=== PATIENT | female | born 1945 | race Caucasian/White ===

== ENCOUNTER 2019-11-26 17:53 | Emergency (ER) | payer SELFPAY ==
[~2019-11-26] VITALS: Ht 160 cm; Wt 53.9 kg
--- NOTE | 2019-11-26 18:40 | NUR ---
GETTER FILLER: PT TO ROOM FROM BENNIE RIVERA
--- NOTE | 2019-11-26 18:58 | NUR ---
Pt alert and sitting up on gurney. Pt reports vomiting and lower abd pain since lunch. Pt reports small bowel obstruction x9 months ago, where 2 inches of small bowel were taken out. Pt reports regular BM's. No fevers at home. BS present, pt tender to bilateral lower quadrants. Pt in gown. Call light at bedside. MD at bedside.
[2019-11-26] MEDS ORDERED: AMLO5TAB10 PO (19:03)
[2019-11-26] MEDS ORDERED: CALC-545 PO (19:03)
[2019-11-26] MEDS ORDERED: CHOL200059 PO (19:03)
[2019-11-26] MEDS ORDERED: POTA99TA24 PO (19:03)
[2019-11-26] MEDS ORDERED: LISI-167 PO (19:03)
[2019-11-26 19:19] LABS: BASOPHILS # (AUTO) 0.02 x10^3/uL (0-0.1); BASOPHILS % (AUTO) 0 % (0-1); EOSINOPHILS # (AUTO) 0.01 x10^3/uL (0-0.4); EOSINOPHILS % (AUTO) 0 % (1-7); LYMPHOCYTES # (AUTO) 0.57 x10^3/uL (1-3.4); LYMPHOCYTES % (AUTO) 5 % (22-44); MD NO; MEAN CORPUSCULAR HEMOGLOBIN 31.2 pg (27.0-34.8); MEAN CORPUSCULAR HGB CONC 33.6 g/dL (32.4-35.8); MEAN CORPUSCULAR VOLUME 92.9 fL (80-100); MEAN PLATELET VOLUME 8.4 fL (7.4-10.4); MONOCYTES % (AUTO) 2 % (2-9); NEUTROPHILS # (AUTO) 9.63 x10^3/uL (1.8-6.8); NEUTROPHILS % (AUTO) 92 % (42-75); PLATELET COUNT 175 x10^3/uL (130-400); RED BLOOD COUNT 4.58 x10^6/uL (3.82-5.3); RED CELL DISTRIBUTION WIDTH 12.5 % (9.6-15.2)
[2019-11-26] MEDS ORDERED: ONDANSETRON 2MG/ML, 2ML ONE (19:23)
[2019-11-26 19:29] LABS: ALANINE AMINOTRANSFERASE 21 U/L (12-78); ANION GAP 5 mmol/L (5-15); CALCIUM 9.1 mg/dL (8.5-10.1); CHLORIDE 108 mmol/L (98-107); CREATININE 0.84 mg/dL (0.55-1.02)
[2019-11-26] MEDS ORDERED: SODIUM CHLORIDE FLUSH 10ML SYR IVF ONE (19:30)
[2019-11-26] MEDS ORDERED: ONDANSETRON 2MG/ML, 2ML IVPush ONE (19:30)
[2019-11-26] MEDS ORDERED: SODIUM CHLORIDE 0.9% 1,000ML IVBOLUS ONE (19:30)
--- NOTE | 2019-11-26 19:30 | NUR ---
PIV placed. Labs and urine sent. Pt to xray.
[2019-11-26 19:32] LABS: ALKALINE PHOSPHATASE 52 U/L (45-117); BILIRUBIN,TOTAL 0.7 mg/dL (0.2-1.0); TOTAL PROTEIN 7.4 g/dL (6.4-8.2)
[2019-11-26 19:45] LABS: MICROSCOPIC INDICATED
[2019-11-26 20:05] LABS: CULTURE INDICATED? NO
--- NOTE | 2019-11-26 20:22 | NUR ---
Per MD, plan to finish liter of NS and then d/c.
[2019-11-26 21:06] VITALS: BP 129/66
--- NOTE | 2019-11-26 21:20 | NUR ---
Pt alert and oriented and time of d/c. NAD. Pt educated on home-care (bowel rest, fluids), prescription, follow-up and S/sx to return. Pt VU. Pt ambulated out of ER.
== END 2019-11-26 21:23 | disposition home or self-care (01) ==
LOC: ED 21:17
DX: K56.609 Unspecified intestinal obstruction, unspecified as to partial versus complete obstruction (principal); R11.2 Nausea with vomiting, unspecified; Z90.710 Acquired absence of both cervix and uterus; Z90.49 Acquired absence of other specified parts of digestive tract
CPT/HCPCS: 36415; 74021; 80053; 81001; 83605; 83690; 85025; 93005; 96361; 96374; 99285; J2405; J7030